=== PATIENT | male | born 1995 ===

== ENCOUNTER 2021-03-14 15:39 | Emergency (ER) | payer BC ==
[~2021-03-14] VITALS: Ht 182.9 cm; Wt 90.7 kg
[2021-03-14] MEDS ORDERED: SEROQUEL300 MG (16:09)
[2021-03-14] MEDS ORDERED: DEPAKOTE ER500 MG (16:09)
[2021-03-14] MEDS ORDERED: LATUDA20 MG (16:09)
[2021-03-14] MEDS ORDERED: ZITHROMAX500 MG PO (20:37)
== END 2021-03-14 20:43 | disposition home or self-care (01) ==
LOC: ER 15:39
DX: J03.90 Acute tonsillitis, unspecified (principal); B27.90 Infectious mononucleosis, unspecified without complication; Z20.822 Contact with and (suspected) exposure to COVID-19

== ENCOUNTER 2021-03-17 10:20 | Emergency (ER) | payer BC ==
[~2021-03-17] VITALS: Ht 182.9 cm; Wt 90.7 kg
[~2021-03-17 10:20] MED LIST: DEPAKOTE ER500 MG; LATUDA20 MG; SEROQUEL300 MG; ZITHROMAX500 MG PO
== END 2021-03-17 13:37 ==
LOC: ER 10:20
DX: J03.90 Acute tonsillitis, unspecified (principal)